=== PATIENT | male | born 1935 | race Caucasian/White ===

== ENCOUNTER 2016-11-29 08:31 | Inpatient (IN) ==
[2016-11-23 12:57] LABS: Basophils # (Auto) 0.1 K/mcL (0.0-0.3); Basophils % (Auto) 0.5 % (0.0-2.0); Eosinophils # (Auto) 0.2 K/mcL (0.0-0.7); Eosinophils % (Auto) 1.8 % (0.0-7.0); Granulocytes % (Auto) 68.4 % (38.0-78.0); Lymphocytes # (Auto) 2.2 K/mcL (1.5-4.8); Lymphocytes % (Auto) 21.6 % (15.5-49.0); Mean Cell Volume 98.8 fL (80.0-100.0); Mean Corpuscular HGB Conc 33.8 g/dL (31.0-36.0); Mean Corpuscular Hemoglobin 33.4 pg (26.0-34.0); Monocytes # (Auto) 0.8 K/mcL (0.1-0.9); Monocytes % (Auto) 7.7 % (1.0-12.0); Platelet Count 268 K/mcL (140-440); RBC 4.44 M/mcL (4.50-5.90)
[2016-11-23 13:38] LABS: Blood Urea Nitrogen 11 mg/dl (8-23)
[2016-11-23 15:35] LABS: Appearance,Urine CLEAR; Bacteria,Urine 0 /hpf (0); Bilirubin,Urine NEG (NEG); Color,Urine YELLOW; Glucose,Urine (UA) NEGATIVE (NEG); Leukocyte Esterase,Urine 75 /uL (NEG); Mucus,Urine FEW /hpf (0); Nitrate,Urine NEG (NEG); Protein,Urine NEG (NEG); Specific Gravity,Urine 1.012 (1.000-1.035); Sperm,Urine PRESENT /hpf (ABSENT); Urine Blood NEG mg/dL (<0.03); Urine RBC 3 /hpf (0-1); Urine Squamous Epithelial Cell 0 /hpf (0-4); Urine Transitional Epi Cells < 1 /hpf (0-2); Urine WBC 2 /hpf (0-4); Urobilinogen,Urine NEG (NEG)
[~2016-11-29 08:31] MED LIST: CELECOXIB 200 MG CAPSULE PO SCH; KETOROLAC 30 MG, ROPIVACAINE HCL/PF 49.5 ML, EPINEPHrine 0.5 MG, 0.9 % SODIUM CHLORIDE ... IJ ONE; PREGABALIN 75 MG CAPSULE PO SCH; ceFAZolin 1 GM VIAL IV SCH; oxyCODONE 10 MG TAB.ER.12H PO SCH
[2016-11-29] MEDS ORDERED: DEXAMETHASONE 10 MG/ML VIAL IV ONE (11:05)
[2016-11-29] MEDS ORDERED: ONDANSETRON 4 MG/2 ML VIAL IV ONE (11:05)
[2016-11-29] MEDS ORDERED: ePHEDrine 50 MG/ML AMPUL IV ONE (11:05)
[2016-11-29] MEDS ORDERED: TRANEXAMIC ACID 1,000 MG/10 ML VIAL IV ONE (11:05)
[2016-11-29] MEDS ORDERED: MIDAZOLAM 2 MG/2 ML VIAL IV ONE (11:05)
[2016-11-29] MEDS ORDERED: PHENYLEPHRINE 10 MG/ML VIAL IV ONE (11:05)
[2016-11-29] MEDS ORDERED: PROPOFOL 200 MG/20 ML VIAL IV ONE (11:05)
[2016-11-29] MEDS ORDERED: LIDOCAINE HCL/PF 100 MG/5 ML SYRINGE IV ONE (11:05)
[2016-11-29] MEDS ORDERED: ROPIVACAINE HCL/PF 20 ML VIAL IJ ONE (11:05)
[2016-11-29] MEDS ORDERED: LACTATED RINGERS 250 ML IV PRN (12:24)
[2016-11-29] MEDS ORDERED: BENZOCAINE/MENTHOL 1 LOZENGE PO PRN ×2 (12:24→13:00)
[2016-11-29] MEDS ORDERED: ONDANSETRON 4 MG/2 ML VIAL IV PRN ×2 (12:24→13:00)
[2016-11-29] MEDS ORDERED: HYDROmorphone 2 MG/ML SYRINGE IV PRN ×2 (12:24→13:00)
[2016-11-29] MEDS ORDERED: IPRATROPIUM/ALBUTEROL 3 ML AMPUL.NEB NEB PRN (12:24)
[2016-11-29] MEDS ORDERED: NALOXONE HCL 0.4 MG/ML VIAL IV PRN (12:24)
[2016-11-29] MEDS ORDERED: PROMETHAZINE 25 MG/ML VIAL IM PRN (12:24)
[2016-11-29] MEDS ORDERED: METHOCARBAMOL 1,000 MG/10 ML VIAL IV PRN (12:24)
[2016-11-29] MEDS ORDERED: PROMETHAZINE 25 MG/ML VIAL IV PRN (12:24)
[2016-11-29] MEDS ORDERED: fentaNYL 100 MCG/2 ML VIAL IV PRN (12:24)
[2016-11-29] MEDS ORDERED: diphenhydrAMINE 50 MG/ML VIAL IV PRN (12:24)
[2016-11-29] MEDS ORDERED: MEPERIDINE 25 MG/ML SYRINGE IV PRN (12:24)
[2016-11-29] MEDS ORDERED: ePHEDrine 50 MG/ML AMPUL IV PRN (12:24)
[2016-11-29] MEDS ORDERED: MEPERIDINE 50 MG/ML SYRINGE IM PRN (12:24)
[2016-11-29] MEDS ORDERED: FLUMAZENIL 0.1 MG/ML ML IV PRN (12:24)
[2016-11-29] MEDS ORDERED: LACTATED RINGERS 1,000 ML IV SCH (12:30)
[2016-11-29] MEDS ORDERED: MAGNESIUM HYDROXIDE 30 ML ORAL.SUSP PO PRN (13:00)
[2016-11-29] MEDS ORDERED: HYDROcodone/APAP 10/325MG TABLET PO PRN (13:00)
[2016-11-29] MEDS ORDERED: POLYETHYLENE GLYCOL 3350 17 GM PACKET PO PRN (13:00)
[2016-11-29] MEDS ORDERED: FLEETS ADULT ENEMA PR PRN (13:00)
[2016-11-29] MEDS ORDERED: BISACODYL 10 MG SUPP.RECT PR PRN (13:00)
[2016-11-29] MEDS ORDERED: TRANEXAMIC ACID 1,000 MG/10 ML VIAL IV SCH (13:00)
--- NOTE | 2016-11-29 13:00 | Brief Operative Note ---
Date of procedure: 11/29/16 Pre-op diagnosis: Left knee severe OA Post-op diagnosis: same Procedure: Left robotic assisted total knee arthroplasty Grafts/Implants: Yes ([place] Triathlon CR 7 femur, 7 tibia, 9mm insert, 39 patella) Anesthesia: spinal, GLMA Findings: severe arthritis Complications: none Surgeon: Chun Grady Cub Reporter: Heladio Vizcarra Estimated blood loss (cc): 30 Specimens Removed/Pathology: none sent Condition: stable Disposition: PACU
[2016-11-29] MEDS: ACETAMINOPHEN 1,000 MG/100 ML BOTTLE IV SCH ×2 (13:30→17:04)
--- NOTE | 2016-11-29 13:40 | Discharge Summary ---
Providers - Providers Patient information: Note initiated : 11/29/16 at 1:38 pm Service Date, if different from initiated Date: [] Patient: Marlo Boogie 81 y/o M admitted on 11/29/16 for Lt Uni Medial Brian Knee vs Total Knee Arthroplasty. Chief Complaint: [] Discharge date: 11/30/16 Hospitalization Hospital course: Pt was admitted for a L TKA. He underwent the procedure on the day of admission and then transfered to the floor for IV pain meds, IV abx, and PT. He spent one night on the floor prior to discharge. He was given appropriate pain meds and aspirin for DVT prophylaxis. He will f/u at [facility] in 10-14 days. Discharge diagnosis: L kne osteoarthrosis Exam - Exam Clean and dry: Yes Weight bearing status: as tolerated Ortho Discharge - TKA - Patient Instructions Diet: Regular Diet Activity: activity as tolerated Total Knee Protocol: For Total Knee: Start ROM LYNN with stationary bike or rocking chair. Work on gaining full extension of knee. Posterior dislocation precautions provided. Hip abductor strengthening and gait training instructions provided. Apply Cryocuff as instructed. Dressing Care: May shower in 2 days - Follow Up Plan Follow Up Appointments: Heladio Vizcarra PA-C [[facility]] - 12/14/16 8:50 am Disposition: Home, Self-Care Prognosis: Good Rehab Potential: Good Overall status at discharge: patient is progressing back to baseline - Orders For Discharge Prescriptions: Aspirin [Ecotrin] 325 mg PO BID #30 tab.ec HYDROcodone/ACETAMINOPHEN [[place] 10-325 Tablet] 1 - 2 tab PO Q4-6HP PRN #90 tab PRN Reason: Pain Additional Discharge Orders: Physical Therapy at Discharge - TKA Location: Determined By Patient Walker Location: Determined By Patient Pending Studies Resuscitation Status Full Code Diet Regular Diet Start SunNov 29 Dinner Diet NPO Diet (NOW) Start SunNov 29 Breakfast Cefazolin Sodium (Ancef) 2 gm IV PREOP DEBBY Stop: 11/29/16 17:00 Last Admin: 11/29/16 10:50 Dose: 2 gm Celecoxib (Celebrex) 200 mg PO PREOP DEBBY Stop: 11/29/16 17:00 Last Admin: 11/29/16 09:30 Dose: 200 mg Oxycodone HCl (Oxycontin) 10 mg PO PREOP DEBBY Stop: 10/18/17 17:00 Last Admin: 11/29/16 09:30 Dose: 10 mg Pregabalin (Lyrica) 75 mg PO PREOP DEBBY Stop: 11/29/16 17:00 Last Admin: 11/29/16 09:30 Dose: 75 mg
[2016-11-29] MEDS: 0.9 % SODIUM CHLORIDE 1,000 ML IV SCH ×2 (13:49→21:00)
[2016-11-29] MEDS: 0.9 % SODIUM CHLORIDE 10 ML SYRINGE IV SCH ×2 (14:04→23:48)
--- NOTE | 2016-11-29 14:45 | XRay Report ---
CLINICAL INFORMATION: Postop total knee prostheses COMPARISON: Preoperative films from 09/18/2013 FINDINGS: Total knee prostheses is anatomically aligned. No osseous abnormalities. Soft tissue gas and swelling seen as expected IMPRESSION: Negative Interpreted and Authenticated by: Todd Barnes 11/29/16
[2016-11-29] MEDS: ceFAZolin 1 GM VIAL IV SCH (17:04)
[2016-11-29] MEDS: KETOROLAC 15 MG/ML VIAL IV SCH (17:04)
[2016-11-29] MEDS ORDERED: ACETAMINOPHEN 1,000 MG/100 ML BOTTLE IV PRN (19:01)
[2016-11-29] MEDS ORDERED: oxyCODONE HCL 5 MG TABLET PO PRN (19:02)
[2016-11-29] MEDS: FAMOTIDINE 20 MG TABLET PO SCH (20:15)
[2016-11-29] MEDS: DOCUSATE SODIUM 100 MG CAPSULE PO SCH (20:15)
[2016-11-29] MEDS: ASPIRIN 325 MG ENTERIC COATED TABLET PO SCH (20:15)
[2016-11-29] MEDS ORDERED: rOPINIRole 0.25 MG TABLET PO SCH (21:00)
[2016-11-29] MEDS ORDERED: SENNOSIDES 1 TABLET PO SCH (21:00)
[2016-11-30] MEDS: 0.9 % SODIUM CHLORIDE 1,000 ML IV SCH ×2 (00:04→05:23)
[2016-11-30] MEDS: ACETAMINOPHEN 1,000 MG/100 ML BOTTLE IV SCH ×2 (00:51→05:29)
[2016-11-30] MEDS: KETOROLAC 15 MG/ML VIAL IV SCH ×2 (00:52→05:46)
[2016-11-30] MEDS: ceFAZolin 1 GM VIAL IV SCH (02:48)
[2016-11-30] MEDS ORDERED: ACETAMINOPHEN 1,000 MG/100 ML BOTTLE IV ONE (05:49)
[2016-11-30] MEDS: 0.9 % SODIUM CHLORIDE 10 ML SYRINGE IV SCH (05:55)
[2016-11-30] MEDS ORDERED: ACETAMINOPHEN 1,000 MG/100 ML BOTTLE IV SCH (06:00)
[2016-11-30] MEDS ORDERED: ACETAMINOPHEN 1,000 MG/100 ML BOTTLE IV PRN (06:00)
[2016-11-30] MEDS ORDERED: LEVOTHYROXINE 75 MCG TABLET PO SCH (07:30)
--- NOTE | 2016-11-30 07:39 | Orthopedic Progress Note ---
Orthopedics - Auxillary Note - Subjective Patient Information: Note initiated : 11/30/16 at 7:38 am Service Date, if different from initiated Date: [] Patient: Marlo Boogie 81 y/o M admitted on 11/29/16 for Lt Uni Medial Brian Knee vs Total Knee Arthroplasty. Chief Complaint: no c/o. bandages c/d/i nvi-distal Vital Signs Temp Pulse Resp BP BP Pulse Ox 11/30/16 07:04 97.9 F 12 98/61 96 11/30/16 04:00 98.0 F 83 12 110/61 96 11/30/16 00:56 97.7 F 87 14 94/53 95 11/29/16 20:00 97.9 F 107 H 16 100/58 94 11/29/16 17:45 94 H 118/83 96 11/29/16 16:45 97 F 95 H 112/55 97 11/29/16 16:15 84 106/56 96 11/29/16 16:08 83 11/29/16 15:45 86 107/57 95 11/29/16 15:15 89 120/55 97 11/29/16 15:00 88 120/62 97 11/29/16 14:45 90 104/57 97 11/29/16 14:30 96.3 F L 83 14 106/59 97 11/29/16 14:09 98.0 F 83 16 110/55 99 11/29/16 14:00 97.1 F 85 17 115/49 99 11/29/16 13:25 82 14 112/53 100 11/29/16 13:20 99.5 F H 87 15 112/53 100 11/29/16 08:51 97.3 F 18 130/72 97 11/29/16 08:31 97.3 F 82 18 130/72 97 Intake and Output 11/29/16 11/30/16 11/30/16 21:59 05:59 13:59 Intake Total 1440 / 1440 1010 / 1010 100 / 100 Output Total 860 / 860 325 / 325 250 / 250 Balance 580 / 580 685 / 685 -150 / -150 Intake: IV 1200 / 1200 100 / 100 100 / 100 Sodium Chloride 0.9% 1,000 ml @ 1000 / 1000 125 mls/hr IV .Q8H [facility] Rx#: [id number] Oral 240 / 240 910 / 910 Output: Urine Catheter Amount 860 / 860 Void Amount 325 / 325 250 / 250 Other: Meal Dinner Percent of Meal Consumed 75% Feeding Ability Independent # Bowel Movements 1 Weight 198 lb 12.8 oz Laboratory Results - last 24 hr 11/30/16 04:16 Hgb 12.6 L Hct 36.9 L s/p L TKA-stable mobilize with PT discharge today
[2016-11-30] MEDS ORDERED: MULTIVIT,THER IRON,CA,FA & MIN 1 TABLET PO SCH (09:00)
[2016-11-30] MEDS ORDERED: TAMSULOSIN 0.4 MG CAPSULE PO SCH (09:00)
[2016-11-30] MEDS ORDERED: HYDROCHLOROTHIAZIDE 25 MG TABLET PO SCH (09:00)
[2016-11-30] MEDS ORDERED: SIMVASTATIN 40 MG TABLET PO SCH (09:00)
[2016-11-30] MEDS: ASPIRIN 325 MG ENTERIC COATED TABLET PO SCH (09:14)
[2016-11-30] MEDS: FAMOTIDINE 20 MG TABLET PO SCH (09:14)
[2016-11-30] MEDS: DOCUSATE SODIUM 100 MG CAPSULE PO SCH (09:14)
--- NOTE | 2016-12-01 11:48 | Operative Note ---
DATE OF OPERATION: 11/29/2016 PREOPERATIVE DIAGNOSIS: Left knee severe osteoarthritis. POSTOPERATIVE DIAGNOSIS: Left knee severe osteoarthritis. PROCEDURE PERFORMED: Left robotic-assisted total knee arthroplasty using a [place] Triathlon size 7 cruciate retaining femoral component, size 7 tibial baseplate, a 9 mm X3 tibial insert with a 39 mm patella. SURGEON: Chun Grady MD. VP MARKETING: Neil Vizcarra PA-C. ANESTHESIA: Spinal plus LMA general. DRAINS: None. SPECIMENS: Bone cuts, which were discarded. BLOOD LOSS: 30 mL COMPLICATIONS: None. POSTOPERATIVE CONDITION: Stable. INDICATIONS FOR SURGERY: This is an 81-year-old male with progressive worsening left knee pain. He had severe [id number] multi-compartment osteoarthritis seen on x-ray. FINDINGS AT SURGERY: As above. Post implantation showed good limb alignment, stability, and patellar tracking. PROCEDURE IN DETAIL: The patient had been seen preoperatively. Informed consent had been obtained after discussion of risks and benefits of surgery. Risks including, but not limited to, bleeding, possibly requiring transfusion; infection, possibly requiring implant removal and prolonged IV antibiotics; injury to nerves, blood vessels, and other surrounding structures; anesthetic risks; nonunion or malunion of the fracture, incomplete or no resolution of symptoms; stiffness, pain, swelling, instability clunking; DVT and pulmonary embolus risks; and the possibility of needing further revision surgery. He understood these risks and wished to proceed. Correct operative site was marked and the patient was taken to the operating room and LMA general given after spinal and then given in preop holding. The left lower extremity was carefully prepped and draped in normal sterile fashion and a time-out was performed verifying patient name, operative site, and plan. Esmarch was used to exsanguinate the extremity and tourniquet was inflated. A midline incision was made with a scalpel through skin and subcutaneous tissue. IrriSept was irrigated and then a medial parapatellar arthrotomy made. Subperiosteal exposure was done of the anterior medial tibia and distal anterior cortex of the femur. The ACL was transected and the anterior horns of the menisci removed. The retropatellar fat pad was also removed. Femoral and tibial check points are placed. Two stab incisions were made over the femur and two in the tibia and bicortical pins placed in each and the arrays were connected. We then checked our hip center of rotation, as well as medial and lateral malleoli with the green probe. We also did our double checks of our femoral and tibial checkpoints. The blue probe was then used to do our mapping and after this was completed, a rongeur was used to remove osteophytes. We then checked our flexion and extension gaps and adjusted our implants to get symmetrical gaps 17 mm. Once this was completed, we then used robotic assistance to make our femoral and tibial bone cuts. Our tibial rotation was marked with a green probe and then we prepared the tibia with the boss reamer and keel punch. Femur was elevated and posterior osteophytes removed with a curved osteotome and curet. We then impacted our femoral trial and drilled our peg holes. A 9 trial insert was placed. The knee was taken into extension. The patella was measured and freehand cut removing 11 mm of bone. We sized this to a 39, which was medialized maximally. Holes were drilled and then trial patella placed and the lateral facetectomy was performed with a saw. We checked our patellar tracking, which was excellent, so we went ahead and opened implants. While antibiotic cement was mixed we irrigated the joint with IrriSept. After waiting a minute we pulse lavaged copiously with saline. CO2 gun was used to clean and dry the cancellous bone surfaces and then cemented the tibia followed by the femur. Excess cement was removed and the definitive 9 trial insert was placed after injecting the posterior capsule with pain cocktail and the knee was taken into extension and then the patellar button cemented. We injected pain cocktail into the pericapsular and subcutaneous tissues and the joint was filled with IrriSept. After waiting several minutes we pulse lavaged copiously with saline. The cement when it fully hardened, we went ahead and inspected for any residual which was removed and then final pulse lavaged with saline, #2 FiberWire interrupted [id number] were used around the superior quadrant of the patella, #1 Vicryl interrupted [id number] around the inferior quadrant. We did remove our checkpoints prior to closure. Then #1 Vicryl was used for the patellar tendon and quad tendon with running stitches. Final IrriSept was done and a minute final pulse lavage and then 2-0 Monocryl for subcutaneous and shaquille for skin. Pins were removed from the femur and tibia and shaquille used to close. Xeroform and sterile dressing were applied. Tourniquet was released. The patient was awakened, extubated, and transferred to recovery in stable condition. BJB:[email or web address] Job ID: [id number] Doc ID: [id number] Chun Grady MD
== END 2016-11-30 10:30 | disposition home or self-care (01) | DRG 470 ==
LOC: MEDSUR 08:31 → EDSTATUS 10:30
PROVIDERS: ADMIT Orthopaedic Surgery; ATTEND Orthopaedic Surgery